=== PATIENT | male | born 1960 | race Caucasian/White ===

== ENCOUNTER 2019-02-17 14:38 | Emergency (ER) | payer OTHER, SELFPAY ==
[2019-02-17 14:46] VITALS: BP 115/88; PULSE 88; RESP 16; TEMP 36; O2SAT 95
--- NOTE | 2019-02-17 14:50 | W.ED.GENAD ---
Discharge Plan Disposition Patient Disposition: [facility] Condition: Fair Discharge Details Chief Complaint: Cellulitis Clinical Impression: Cellulitis Primary Care Provider: [place],Local ED Provider: Iqra Hong Home Meds and New Rx's Prescriptions: New cephalexin [Keflex] 500 mg capsule 500 mg PO QID Qty: 28 RF: 0 Continued sulfamethoxazole-trimethoprim [Bactrim] 400-80 mg Tablet 1 tab PO DAILY RF: 0 atenolol 100 mg Tablet 100 mg PO DAILY RF: 0 amlodipine 10 mg Tablet 10 mg PO DAILY RF: 0 lisinopril 10 mg Tablet 10 mg PO DAILY RF: 0 mirtazapine 15 mg Tablet 15 mg PO DAILY RF: 0 fluoxetine 20 mg Capsule 20 mg PO DAILY RF: 0 metformin 500 mg Tablet Extended Release 24hr 500 mg PO BID RF: 0 Discharge Instructions Instructions: Cellulitis (ED) Additional Instructions: Encourage hydration. Please take the Keflex as prescribed. Even if symptoms improve, please take the entire course. Please follow-up with primary care for reevaluation next week. If you develop fever/chills, spreading of the redness, increased pain or the new/worsening symptoms please seek care urgently once again. Discharge Data Discharge Date/Time-TO BE ENTERED AT DEPARTURE: 02/17/19 15:40 Medical Decision Making Patient is a 58-year-old male presenting today with chief complaint of cellulitis to left upper extremity. He reports that one week ago he cut himself while working in the kitchen. Patient is currently incarcerated. States that the initially were healing quite well. However, yesterday he began noting signs of infection. States that this pain has increased and the redness is spread prompting him to seek care urgently today. Patient was seen by the nurse in the [facility] today and wounds were dressed. Patient has localized erythema, warmth and induration to dorsal left forearm. No fluctuance to suggest abscess. Does have swelling around this area. Findings are consistent with cellulitis. Patient has allergy to penicillin but reports that he has had keflex historically wihtout issue. Plan to treat with oral abx. I do not see any evidence of systemic illness. He is afebrile, has been afebrile at home. Cellulitis is localized to 6cm area of arm. Appears nontoxic. Patient given first dose of Keflex here. will continue to be closely monitored in police custody. Encouraged elevation. Patient fitted with lorena wrap as he finds compression beneficial. Asked he be assessed by provider within the next week. All questions and concerns were addressed, she is in agreement iwth this plan. HPI General Mode of arrival: ambulatory. Date/Time Provider Initiated Documentation: 02/17/19 14:48. Limitations to Documentation: no limitations. Information obtained by: patient, police (patient currently incarcerated ) and RN notes reviewed. History of Present Illness 58 year old M presents to the emergency department with the chief complaint of left forearm skin infection, described as moderate, Quality is described as aching, and is localized to the left and upper extremity. Patient reports no radiation. Patient started experiencing this day(s) (1) and it has been constant. No relieving factors improve symptom(s), Movement worsens symptoms . Patient notes no other symptoms.; denies diaphoresis and fever/chills. Patient did receive the following treatments prior to arrival, none Related Data Home Medications Medication Instructions Recorded Confirmed amlodipine 10 mg PO DAILY 02/17/19 02/17/19 atenolol 100 mg PO DAILY 02/17/19 02/17/19 cephalexin [Keflex] 500 mg PO QID #28 cap 02/17/19 fluoxetine 20 mg PO DAILY 02/17/19 02/17/19 lisinopril 10 mg PO DAILY 02/17/19 02/17/19 metformin 500 mg PO BID 02/17/19 02/17/19 mirtazapine 15 mg PO DAILY 02/17/19 02/17/19 sulfamethoxazole-trimethoprim 1 tab PO DAILY 02/17/19 02/17/19 [Bactrim] Previous Rx's Medication Instructions Recorded cephalexin [Keflex] 500 mg PO QID #28 cap 02/17/19 General Stated Complaint: Cellulitis AMITA: 4 Review of Systems Constitutional Reports as per HPI, Denies chills, Denies fever(s), Denies headache(s) and Denies weakness ENT Denies headache(s) Cardiovascular Reports as per HPI Respiratory Reports as per HPI and Denies cough Musculoskeletal Reports as per HPI and Denies tingling Integumentary/Breasts Reports as per HPI, Reports erythema and Reports wounds Neurologic Reports as per HPI, Denies headache(s), Denies tingling, Denies paresthesias and Denies weakness [facility] Social History Smoking/Tobacco Use Status: Never Alcohol Intake: former Exam Const General: cooperative, healthy appearing, comfortable, no acute distress, well developed and well groomed Nutritional Appearance: average body habitus and well nourished Orientation: alert and awake Resp Effort & Inspection: normal respiratory effort, able to speak in complete sentences and no respiratory distress Cardio Rate: regular rate Rhythm: regular rhythm Skin General skin exam: erythema (surrounding wound dorsal left forearm), no fluctuance, no hypertrophy and no induration Trauma: abrasion (2 small abrasions dorsal left forearm) Neuro General: alert and awake Cognition: normal cognition Speech: speech normal Gait: normal gait Motor: muscle tone normal throughout Sensory Exam: no sensory deficits noted Extrem Left upper extremity: full ROM, normal capillary refill, no joint enlargement, elbow/forearm Details: tenderness Location: of the mid-shaft forearm (dorsal, over area of erythema), normal ROM, warmth, abrasion and distal pulses intact; no ecchymosis, no crepitus and no deformity, wrist Details: normal to inspection and normal ROM; no tenderness and no swelling and hand Details: normal to inspection, normal capillary refill, neuromotor exam normal and neurosensory exam normal; no unusual warmth and no swelling; abnormal to inspection (erythema, warmth and abrasions as above) and no edema Psych Appearance: grossly normal and well kempt Mental Status: mental status grossly normal Speech and Movement: speech and movement normal Course Vital Signs Temperature 36.0 C L 02/17/19 14:46 Pulse 88 02/17/19 14:46 Respiratory Rate 16 02/17/19 14:46 Blood Pressure 115/88 02/17/19 14:46 Pulse Oximetry 95 02/17/19 14:46 Temperature 36.0 C L 02/17/19 14:46 Temperature Source Temporal Artery Scan 02/17/19 14:46 Pulse 88 02/17/19 14:46 Respiratory Rate 16 02/17/19 14:46 Blood Pressure 115/88 02/17/19 14:46 Blood Pressure Position Sitting 02/17/19 14:46 Pulse Oximetry 95 02/17/19 14:46 Oxygen Delivery Method Room Air 02/17/19 14:46 Oxygen Flow Rate 0 02/17/19 14:46
[2019-02-17] MEDS: Cephalexin 500 MG CAP PO (15:10)
[2019-02-17] MEDS: Ibuprofen 600 MG TAB PO (15:10)
[2019-02-17 15:33] VITALS: BP 115/88; PULSE 88; RESP 16; TEMP 36; O2SAT 95
== END 2019-02-17 15:40 | disposition home or self-care (01) ==
PROVIDERS: Emergency Provider Physician Assistant
DX: L03.114 Cellulitis of left upper limb (principal)
CPT/HCPCS: 99283